=== PATIENT | male | born 1985 | race Caucasian/White ===

== ENCOUNTER 2020-06-06 21:07 | Emergency (ER) | payer OTHER, SELFPAY ==
[2020-06-06 21:08] VITALS: BP 132/90; PULSE 90; RESP 14; TEMP 36.7; O2SAT 96; BMI 33.0
--- NOTE | 2020-06-06 23:51 | ED.SKABFB ---
HPI - Skin/Abscess/Foreign Bdy General Chief complaint: Skin/Abscess/Foreign Body Stated complaint: abcess Source: patient Mode of arrival: ambulatory Limitations: no limitations History of Present Illness HPI narrative: 34-year-old male with history of IV drug abuse presents with 1 day of purulent drainage from his umbilicus. Patient stated he was walking and noted that he had pain and some drainage coming out of belly button. He is currently homeless and his last IV drug use with several hours ago. He has not described any fevers, chills, nausea, vomiting, diarrhea, chest pain or pressure, palpitations, or weakness. MD complaint: abscess/boil Onset (ago): day(s) (1) Tetanus up to date: no Severity: mild Quality: burning and aching Pain Consistency: constant Relieving factors: none Exacerbating factors: movement Context: IVDA Associated symptoms: denies other symptoms Treatments prior to arrival: none Related Data Previous Rx's Medication Instructions Recorded doxycycline monohydrate 100 mg PO BID 10 Days #20 cap 06/06/20 Allergies Allergy/AdvReac Type Severity Reaction Status Date / Time No Known Allergies Allergy Verified 06/06/20 21:13 [No Known Allergies*] Review of Systems Review of Systems: Constitutional: No Fever, No Chills ENT/Mouth: No sore throat, No Rhinorrhea Eyes: No Eye Pain, No Swelling, No Redness Cardiovascular: No Chest Pain, No SOB Respiratory: No Cough, No Sputum Gastrointestinal: No Nausea, No Vomiting, No Diarrhea, No abdominal Pain Genitourinary: No Dysuria, No Hematuria Musculoskeletal: No joint pain, No Myalgias, No Joint Swelling Skin: Positive erythema to the umbilicus, positive purulent drainage from the umbilicus, No Skin Lesions, No rash Neuro: No Weakness, No Numbness, No Loss of Consciousness, No Dizziness, No Headache Psych: No Anxiety, No Depression, No SI/HI/AH/VH Heme/Lymph: No Bruising, No Bleeding,No Lymphadenopathy Endocrine: No Polyuria, No Polydipsia Yes all other systems are reviewed and are negative [facility], [facility] Past Medical History Attestation statement: The following information was validated with the patient. Medical History (Updated 06/07/20 @ 00:00 by Carey Keen) No known health problems Social History Social History Alcohol intake: current Smoking Status: Current every day smoker Use of substances other than those prescribed or required for medical reasons: Yes Substance Use Type: Heroin and Marijuana Advance Directives: No Advance Directives Information Provided: No Physical Exam Vital Signs: Vital Signs: Last Vital Signs Temp 98.1 F 06/06/20 21:08 Pulse 90 06/06/20 21:08 Resp 14 06/06/20 21:08 BP 132/90 H 06/06/20 21:08 Pulse Ox 96 06/06/20 21:08 Body Mass Index 33.0 Appearance: Alert. Oriented X3. No acute distress. Eyes: Pupils equal, round and reactive to light. ENT: Pharynx normal. Neck: Normal inspection. Neck supple. CVS: Normal heart rate and rhythm. Pulses normal. Respiratory: No respiratory distress. Breath sounds normal. Abdomen: Soft and nontender. Erythema and excoriation with purulent drainage noted to the umbilicus Skin: Skin warm and dry. Multiple puncture wounds consistent with IV drug abuse to bilateral upper extremities. Normal skin color. Normal skin turgor. Extremities: No lower extremity edema. Neuro: No motor deficit. No sensory deficit. Course Course Course Narrative: 34-year-old male with history of IV drug use presents with purulent drainage from the umbilicus. Area was cleaned, irrigated with copious amounts of sterile saline, several pieces of hair noted deep inside the umbilicus visualized with an otoscope. Hair is removed, bacitracin applied. Plan of care is to treat with p.o. doxycycline and update Tdap vaccine. Patient verbalized understanding of and agrees plan care discharge home. MDM - Skin/Abscess/Foreign Bdy Differential Diagnosis Differential diagnosis: Likely abscess of skin or subcutaneous tissue, cellulitis and contact dermatitis Medical Records Attestation: I reviewed the patient's medical records. Lab Data Attestation: I reviewed the patient's lab results. Discharge Plan Discharge Clinical Impression: Cellulitis Patient Disposition: Home, Self-Care Instructions: Cellulitis (ED) Additional Instructions: You were evaluated for drainage coming from your belly button. You do have some cellulitis caused by several pieces of hair that were stuck in your belly button. Please use bacitracin daily, apply with Q-tip. Keep the area clean and dry. We prescribed doxycycline. Please take this medication twice a day for the next 10 days. We updated your Tdap vaccine today. Thank you for choosing this emergency department for evaluation. Please follow-up with primary care physician as needed. Return to the emergency department for any new, concerning, or worsening symptoms. Prescriptions: New doxycycline monohydrate 100 mg capsule 100 mg PO BID 10 Days Qty: 20 RF: 0
[2020-06-07 00:35] VITALS: BP 130/74; PULSE 90; RESP 18; TEMP 36.7; O2SAT 96
== END 2020-06-07 01:03 | disposition home or self-care (01) ==
PROVIDERS: Emergency Provider Internal Medicine
DX: L03.316 Cellulitis of umbilicus (principal); S30.811A Abrasion of abdominal wall, initial encounter; R10.2 Pelvic and perineal pain; F11.10 Opioid abuse, uncomplicated; F12.10 Cannabis abuse, uncomplicated; X58.XXXA Exposure to other specified factors, initial encounter; Y93.9 Activity, unspecified; Y92.9 Unspecified place or not applicable; Y99.9 Unspecified external cause status; Z79.899 Other long term (current) drug therapy; Z23 Encounter for immunization
CPT/HCPCS: 90471; 90715; 99284

== ENCOUNTER 2020-07-15 23:39 | Emergency (ER) | payer OTHER, SELFPAY ==
[2020-07-16 00:34] VITALS: BP 132/78; PULSE 72; RESP 18; TEMP 36.6; O2SAT 97; BMI 21.5
[2020-07-16] MEDS: cephALEXin 500 MG CAPSULE PO (00:49)
--- NOTE | 2020-07-16 00:59 | ED.SKABFB ---
HPI - Skin/Abscess/Foreign Bdy General Chief complaint: Skin/Abscess/Foreign Body Stated complaint: ABSCESS Time Seen by Provider: 07/16/20 00:35 Source: patient Mode of arrival: ambulatory History of Present Illness HPI narrative: Patient homeless IVDA user comes here for superficial redness and swelling of the skin right forearm at the site of IVDA use few days ago history of similar episodes in the past no fever no chills Related Data Previous Rx's Medication Instructions Recorded doxycycline monohydrate 100 mg PO BID 10 Days #20 cap 06/06/20 cephalexin 500 mg PO BID 10 Days #20 cap 07/16/20 doxycycline hyclate 100 mg PO BID #20 cap 07/16/20 Allergies Allergy/AdvReac Type Severity Reaction Status Date / Time No Known Allergies Allergy Verified 06/06/20 21:13 [No Known Allergies*] Review of Systems Review of Systems: Yes all other systems are reviewed and are negative [facility] Past Medical History Medical History No known health problems Social History Social History Alcohol intake: current Smoking Status: Current every day smoker Substance Use Type: Heroin and Marijuana Advance Directives: No Physical Exam Vital Signs: Vital Signs: Last Vital Signs Temp 97.8 F 07/16/20 00:34 Pulse 72 07/16/20 00:34 Resp 18 07/16/20 00:34 BP 132/78 07/16/20 00:34 Pulse Ox 97 07/16/20 00:34 Body Mass Index 21.5 Const: General: comfortable and no acute distress Resp: Effort & Inspection: normal respiratory effort Auscultation: clear to auscultation bilaterally Cardio: Palpation: normal PMI Rate: regular rate Rhythm: regular rhythm Heart sounds: S1 normal heart sound present, S2 normal heart sound present and no murmurs Skin: Other: Superficial size of a quarter early abscess/erythema and swelling of the right forearm no fluctuancy, no pus discharge MDM - Skin/Abscess/Foreign Bdy MDM Narrative Medical decision making narrative: Patient with superficial abscess early stage no fluctuance. Will discharge patient home on doxycycline and Keflex which did advise the patient not to use drugs Discharge Plan Discharge Clinical Impression: Abscess Patient Disposition: Home, Self-Care Instructions: Abscess (ED) Additional Instructions: Take antibiotic as advised Avoid using drugs. Report to the ER if worsening of the swelling/fever Prescriptions: New doxycycline hyclate 100 mg capsule 100 mg PO BID Qty: 20 RF: 0 cephalexin 500 mg capsule 500 mg PO BID 10 Days Qty: 20 RF: 0 No Action doxycycline monohydrate 100 mg capsule 100 mg PO BID 10 Days Qty: 20 RF: 0 Interventions: ED Discharge Assessment Last Done: 07/16/20 00:50 Discharge Date/Time: 07/16/20 00:52
== END 2020-07-16 00:52 | disposition home or self-care (01) ==
LOC: HO.ED 07-16 00:45
PROVIDERS: Emergency Provider Internal Medicine
DX: L02.413 Cutaneous abscess of right upper limb (principal); F11.10 Opioid abuse, uncomplicated; F12.90 Cannabis use, unspecified, uncomplicated; F17.200 Nicotine dependence, unspecified, uncomplicated
CPT/HCPCS: 99283